=== PATIENT | female | born 2000 | race Hispanic/Latino ===

== ENCOUNTER 2021-06-18 00:49 | Emergency (ER) | payer OTHER ==
[~2021-06-18] VITALS: Ht 170.2 cm; Wt 77.1 kg
[2021-06-18] MEDS ORDERED: IBUPROFEN 600 MG TABLET PO ONE (02:30)
[2021-06-18] MEDS ORDERED: IBUP-2070 PO (02:37)
[2021-06-18] MEDS ORDERED: IBUPROFEN 600 MG TABLET ONE (02:50)
[2021-06-18 02:57] VITALS: BP 125/61
== END 2021-06-18 03:18 | disposition home or self-care (01) ==
LOC: EDH 00:49
DX: S00.431A Contusion of right ear, initial encounter (principal); M26.601 Right temporomandibular joint disorder, unspecified; X58.XXXA Exposure to other specified factors, initial encounter; Y93.89 Activity, other specified; Y92.89 Other specified places as the place of occurrence of the external cause; Y99.8 Other external cause status
CPT/HCPCS: 99282